=== PATIENT | female | born 1975 | race Two or more races ===

== ENCOUNTER 2017-06-01 21:03 | Emergency (ER) | payer MEDICAID ==
[~2017-06-01] VITALS: Ht 170.2 cm; Wt 83.0 kg
[2017-06-01] MEDS ORDERED: ACETAMINOPHEN 325MG TABLET PO STA (22:51)
[2017-06-01 23:29] LABS: BASOPHILS % 0.3 % (0.0-2.0); HEMATOCRIT. 33.8 % (36.0-48.0); HEMOGLOBIN. 11.5 g/dL (12.0-16.0); LYMPHOCYTES % 23.3 % (20.0-50.0); MEAN CORPUSCULAR HEMOGLOBIN 29.6 pg (28.0-32.0); MEAN PLATELET VOLUME 8.5 fl (7.4-10.4); MONOCYTES % 7.2 % (2.0-8.0); NEUTROPHILS % 66.2 % (40.0-76.0); PLATELET 212 x1000/uL (130-400); RED BLOOD CELL COUNT 3.88 mill/uL (4.2-5.4); RED CELL DISTRIBUTION WIDTH 13.4 % (11.6-14.6)
[2017-06-01 23:49] LABS: CARBON DIOXIDE 23 mEq/L (21-32); CHLORIDE 108 mEq/L (98-107)
[2017-06-02 00:01] LABS: B-HCG QUANTITATIVE 3718 mIU/mL (<3)
[2017-06-02 00:31] LABS: CLARITY URINE CLEAR (CLEAR); COLOR URINE YELLOW (YELLOW); GLUCOSE URINE NEGATIVE (NEGATIVE); KETONES URINE TRACE (NEGATIVE); LEUKOCYTE ESTERASE URINE TRACE (NEGATIVE); NITRITE URINE NEGATIVE (NEGATIVE); OCCULT BLOOD URINE NEGATIVE (NEGATIVE); PH URINE 6.5 (4.5-8.0); PROTEIN URINE NEGATIVE (NEGATIVE); SPECIFIC GRAVITY URINE 1.025 (1.005-1.030)
[2017-06-02 00:34] VITALS: BP 122/72
== END 2017-06-02 02:36 | disposition home or self-care (01) ==
LOC: ER 22:33
DX: O02.1 Missed abortion (principal)
CPT/HCPCS: 36415; 76801; 76817; 80048; 81001; 84702; 85025; 86850; 86900; 86901; 99285; Z7610

== ENCOUNTER 2017-06-05 04:58 | Day surgery (SDC) | payer MEDICAID ==
[~2017-06-05] VITALS: Ht 170.2 cm; Wt 81.3 kg
[2017-06-05] MEDS ORDERED: SODIUM CHLORIDE 0.9% 1,000 ML IV ONE (06:36)
[2017-06-05] MEDS ORDERED: ONDANSETRON HCL 4MG/2ML VIAL IV ONE (07:15)
[2017-06-05] MEDS ORDERED: MORPHINE SULFATE 4 MG/ML CPJ (NOT FOR IM USE) IV ONE (07:15)
[2017-06-05 07:23] LABS: BASOPHILS % 0.3 % (0.0-2.0); EOSINOPHILS % 1.2 % (0.0-5.0); HEMOGLOBIN. 11.3 g/dL (12.0-16.0); LYMPHOCYTES % 9.3 % (20.0-50.0); MEAN CORPUSCULAR HEMOGLOBIN 29.1 pg (28.0-32.0); MEAN CORPUSCULAR VOLUME 87.7 fL (81.0-99.0); MEAN PLATELET VOLUME 8.1 fl (7.4-10.4); MONOCYTES % 4.6 % (2.0-8.0); NEUTROPHILS % 84.6 % (40.0-76.0); PLATELET 219 x1000/uL (130-400); RED BLOOD CELL COUNT 3.88 mill/uL (4.2-5.4); RED CELL DISTRIBUTION WIDTH 13.2 % (11.6-14.6)
[2017-06-05 07:28] LABS: HCG SCREEN POSITIVE
[2017-06-05 07:31] LABS: PARTIAL THROMBOPLASTIN TIME 26.7 sec (24.0-34.0); PROTHROMBIN TIME 10.8 sec
[2017-06-05 07:41] LABS: CARBON DIOXIDE 22 mEq/L (21-32); CHLORIDE 106 mEq/L (98-107)
[2017-06-05 07:52] LABS: B-HCG QUANTITATIVE 1995 mIU/mL (<3)
[2017-06-05] MEDS ORDERED: KETOROLAC 30MG/ML VIAL IV ONE (09:00)
[2017-06-05] MEDS ORDERED: MISOPROSTOL 200MCG TABLET PO ONE (09:00)
[2017-06-05] MEDS ORDERED: MISOPROSTOL 200MCG TABLET ONE ×2 (09:50→09:51)
[2017-06-05 09:51] VITALS: BP 101/76
[2017-06-05] MEDS ORDERED: KETOROLAC 30MG/ML VIAL ONE (09:52)
[2017-06-05] MEDS ORDERED: PROPOFOL 200MG/20ML VIAL IV ONE (09:53)
[2017-06-05] MEDS ORDERED: LIDOCAINE HCL 1% 20ML VIAL (Pyxis) INJ ONE ×2 (09:53→09:57)
[2017-06-05] MEDS ORDERED: PHENYLEPHRINE HCL 10 MG/ML 1ML (IV VIAL) IV ONE ×2 (09:53→09:57)
[2017-06-05] MEDS ORDERED: CEFAZOLIN SODIUM 1000MG/VIAL ONE (10:39)
[2017-06-05] MEDS ORDERED: OXYTOCIN 10 UNITS/ML 1ML ONE (10:47)
[2017-06-05] MEDS ORDERED: METHYLERGONOVINE MALEATE 0.2 MG/ML ONE (10:51)
[2017-06-05] MEDS ORDERED: SUCCINYLCHOLINE CHLORIDE 200MG/10ML VIAL IV ONE (10:53)
== END 2017-06-05 12:35 | disposition home or self-care (01) ==
LOC: ER 05:02 → EDBEDREQTM 08:59 → EDBEDREQ 08:59 → OR 09:24 → ENRESERV 10:00 → OR 12:35 → CANBEDREQ 19:23
PROVIDERS: ATTEND Obstetrics & Gynecology
DX: O02.1 Missed abortion (principal); Z87.891 Personal history of nicotine dependence
CPT/HCPCS: 36415; 59820; 76801; 76817; 80048; 84702; 84703; 85025; 85610; 85730; 86850; 86900; 86901; 88305; 93005; 96361; 96374; 96375; 99285; J0330; J0690; J1885; J2210; J2270; J2370; J2405; J3490; J7030; J2704